=== PATIENT | male | born 1945 | race Caucasian/White ===

== ENCOUNTER 2016-07-17 19:36 | Emergency (ER) | payer OTHER ==
[2016-07-17 19:56] VITALS: TEMP 97.7
[2016-07-17] MEDS ORDERED: FAMOTIDINE 20 MG TAB ONE (20:17)
[2016-07-17] MEDS ORDERED: predniSONE 20 MG TAB ONE (20:17)
[2016-07-17] MEDS ORDERED: FAMOTIDINE 20 MG TAB PO ONE (20:28)
[2016-07-17] MEDS ORDERED: predniSONE 20 MG TAB PO ONE (20:28)
--- NOTE | 2016-07-17 20:52 | EDPHY ---
H & P Stated Complaint: multiple bee stings - Personal History Current Tetanus/Diphtheria Vaccine: Yes Current Tetanus Diphtheria and Acellular Pertussis (TDAP): Yes Tetanus Vaccine Date: 2016 - Medical/Surgical History Hx Asthma: No Hx Chronic Respiratory Disease: No Hx Diabetes: No Hx Cardiac Disease: No Hx Renal Disease: No Hx Cirrhosis: No Hx Alcoholism: No Hx HIV/AIDS: No Hx Splenectomy or Spleen Trauma: No Other PMH: hypothyroid, prostate CA, macular degeneration - Social History Smoking Status: Never smoked HPI/ROS: Chief complaint: Allergic reaction to bee stings History of present illness: This is a 70-year-old male who presents to the emergency department concerned he is having allergic reaction to bee stings. 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 He was stung by approximately 5 bees at his house today. He states the stings were primarily on his face. He has developed a diffuse rash to his body. He took 50 mg of Benadryl orally prior to coming and states he feels like symptoms are improving. Patient denies other associated signs or symptoms including no trouble breathing, no swelling of the face, mouth or throat, no lightheadedness, dizziness or headache. (Misael Sierra) - Physical Exam Exam: General Appearance: Alert, nontoxic. Eyes: Pupils equal and round no injection. ENT: No angioedema. No drooling. No stridor. Respiratory: Chest is nontender, lungs are clear to auscultation. Cardiac: regular rate and rhythm. Gastrointestinal: Abdomen is soft and nontender, no masses, bowel sounds normal. Musculoskeletal: Neck is supple and nontender. Extremities have full range of motion and are nontender. Skin: Diffuse erythematous rash to the body. (Misael Sierra) Constitutional: Initial Vital Signs Temperature (C) 36.5 C 07/17/16 19:53 Heart Rate 57 L 07/17/16 19:53 Respiratory Rate 16 07/17/16 19:53 Blood Pressure 126/67 H 07/17/16 19:53 O2 Sat (%) 94 07/17/16 19:53 O2 Delivery Mode Room Air Allergies/Adverse Reactions: No Known Allergies Allergy (Unverified 07/17/16 19:52) Home Medications: Medication Instructions Recorded Gavino 02/17/09 EPINEPHrine [Epipen 0.3 MG] 0.3 mg IM ONCE #2 syr 07/17/16 Levothyroxine 07/17/16 predniSONE 40 mg PO DAILY 3 Days 07/17/16 Medical Decision Making ED Course/Re-evaluation: Patient discussed with my secondary supervising physician Dr. Dorita Almodovar. Patient presents to the emergency department having an apparent allergic reaction to bee stings. He is afebrile and vital signs are stable. No evidence of airway compromise. I do not appreciate evidence of severe allergic reaction/ anaphylaxis. Patient is given prednisone and Pepcid. He is observed with improvement in symptoms. He is comfortable being discharged home. Home care is discussed including the use of prednisone and Benadryl. Patient denies any cardiovascular disease. He is prescribed epi pens. 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 He is asked to follow up with his primary care doctor for recheck and discussion on allergic reactions and use of epi pens. Return precautions are given. Patient voiced understanding and agreement with plan. ( Misael Sierra) The patient was evaluated and managed by the physician child care center assistant director. I have reviewed this chart and I agree with the findings and plan of care as documented , as indicated by my signature. I am the secondary supervising physician. ( Dorita Almodovar) Differential Diagnosis: Included but not limited to allergic reaction, anaphylaxis, contact dermatitis ( Misael Sierra) - Data Points Medications Given: Discontinued Medications Famotidine (Pepcid) 20 mg PO EDNOW ONE Stop: 07/17/16 20:29 Last Admin: 07/17/16 20:30 Dose: 20 mg Prednisone (Prednisone) 60 mg PO EDNOW ONE Stop: 07/17/16 20:29 Last Admin: 07/17/16 20:30 Dose: 60 mg Departure - Departure Disposition: Home, Routine, Self-Care Clinical Impression: Allergic reaction Qualifiers: Encounter type: initial encounter Qualified Code(s): T78.40XA - Allergy, unspecified, initial encounter Condition: Good Instructions: General Allergic Reaction (ED) Additional Instructions: Please follow-up with your primary care doctor in 1-2 days for recheck Take prednisone as prescribed Continue Benadryl 25 mg every 6 hours for the next 1-2 days Discuss the use of epi pens with your primary care doctor to ensure she is comfortable with you using them If symptoms worsen or new symptoms develop return to the emergency room for recheck, if at any time you are having trouble breathing call 911 to facilitate care and return to the emergency room Referrals: Binta Cox MD [Primary Care Provider] - As per Instructions Prescriptions: EPINEPHrine [Epipen 0.3 MG] 0.3 mg IM ONCE #2 syr predniSONE 40 mg PO DAILY 3 Days
[2016-07-17 21:05] VITALS: BP 127/73; PULSE 62; RESP 18; O2SAT 92
== END 2016-07-17 21:05 | disposition home or self-care (01) ==
DX: T78.40XA Allergy, unspecified, initial encounter (principal); Z85.46 Personal history of malignant neoplasm of prostate

== ENCOUNTER → 2018-09-02 | Outpatient (CLI) | payer OTHER | LOC: FIMAGING 08:13 ==